=== PATIENT | male | born 1955 | race Caucasian/White ===

== ENCOUNTER 2024-06-28 12:03 | Observation (INO) | payer MEDICARE ==
[~2024-06-28] VITALS: Ht 170.2 cm; Wt 80.4 kg
[2024-06-28] VITALS (13 sets, daily range): BP systolic 110–143; BP diastolic 67–82
--- NOTE | 2024-06-28 12:09 | NUR ---
PATIENT TO ER ROOM 14 WITH STEADY GAIT.
--- NOTE | 2024-06-28 12:11 | NUR ---
PATIENT TO ROOM 14
[2024-06-28] MEDS ORDERED: ASPIRIN 81 MG/TAB PO ONE (12:15)
[2024-06-28 12:45] LABS: BASO% 0.5 % (0-3); EOS% 1.9 % (0-8); HEMATOCRIT 48.8 % (39.0-50.0); HEMOGLOBIN 16.7 g/dl (14.0-18.0); IMMATURE GRANULOCYTES 0.2 % (0.0-5.0); LYMPH% 30.1 % (15-41); MEAN CELL VOLUME 92.6 fL CALC (80.0-100.0); MEAN CORPUSCULAR HGB 31.7 pG CALC (26.0-32.0); MEAN CORPUSCULAR HGB CONC 34.2 g/dL CAL (32.0-36.0); MONO% 6.6 % (2-13); NEUT# 6.2 thou/uL (1.82-7.42); NEUT% 60.7 % (42-76); RED BLOOD COUNT 5.27 mill/uL (4.70-6.10); RED CELL DISTRI WIDTH 12.6 % (11.5-15.5)
[2024-06-28 12:51] LABS: ALBUMIN 4.6 g/dL (3.2-5.0); ALKALINE PHOSPHATASE 91 u/l (38-126); ANION GAP 15 (6-22 (CALC)); BILIRUBIN, TOTAL 0.9 mg/dL (0.2-1.3); BUN 20 mg/dL (8-23); BUN/CREATININE RATIO 22 (12-20 (CALC)); CARBON DIOXIDE 21 mmol/l (22-30); CHLORIDE 106 mmol/l (95-108); CREATININE 0.9 mg/dL (0.7-1.3); ESTIMATED GFR 91 ML/MIN (>=90 (CALC)); SGOT/AST 33 u/l (19-48); SODIUM 139 mmol/l (137-146); TOTAL PROTEIN 7.9 g/dL (6.3-8.2)
[2024-06-28] MEDS ORDERED: ACETAMINOPHEN 325 MG/TAB PO PRN (14:25)
[2024-06-28] MEDS ORDERED: MAGNESIUM HYDROXIDE 30 ML UDC PO PRN (14:25)
--- NOTE | 2024-06-28 14:37 | NUR ---
NURSE TO NURSE REPORT COMPLETED WITH BORIS MARTINEZ
--- NOTE | 2024-06-28 14:55 | NUR ---
REPORT RECEIVED FROM CHARLES IN ED, PT ARRIVED ON UNIT @ 1446 TRANSPORTED VIA W/C BY ED STAFF. ALERT AND ORIENTED X 4, DENIES PAIN AT THIS TIME, TELE MONITOR IN PLACE. ORIENTED TO ROOM AND CALL MICHEL, SPOUSE JUST ARRIVED IN ROOM AT THIS TIME.
--- NOTE | 2024-06-28 19:39 | NUR ---
PATIENT AWAKE ALERT AND ORIENTED X3. SITTING UP IN BED WATCHING TV. ASSESSMENT COMPLETE. DENIES PAIN AT THIS TIME. NO DISTRESS NOTED. CALL LIGHT WITHIN REACH..
[2024-06-28] MEDS ORDERED: ENOXAPARIN SODIUM 40 MG/0.4 ML SYR SC SCH (21:00)
[2024-06-29] VITALS (8 sets, daily range): BP systolic 121–125; BP diastolic 67–68
[2024-06-29 02:10] LABS: BASO% 0.5 % (0-3); EOS% 5.1 % (0-8); HEMATOCRIT 46.4 % (39.0-50.0); HEMOGLOBIN 15.7 g/dl (14.0-18.0); IMMATURE GRANULOCYTES 0.7 % (0.0-5.0); LYMPH% 35.2 % (15-41); MEAN CELL VOLUME 93.9 fL CALC (80.0-100.0); MEAN CORPUSCULAR HGB 31.8 pG CALC (26.0-32.0); MEAN CORPUSCULAR HGB CONC 33.8 g/dL CAL (32.0-36.0); MONO% 8.2 % (2-13); NEUT# 5.23 thou/uL (1.82-7.42); NEUT% 50.3 % (42-76); RED BLOOD COUNT 4.94 mill/uL (4.70-6.10); RED CELL DISTRI WIDTH 12.9 % (11.5-15.5)
[2024-06-29 02:15] LABS: CHOLESTEROL HDL RATIO 3.8 (<4.4 (CALC)); MAGNESIUM 2.2 mg/dL (1.6-2.3); TOTAL PROTEIN 6.8 g/dL (6.3-8.2)
[2024-06-29 02:16] LABS: BILIRUBIN, TOTAL 0.4 mg/dL (0.2-1.3)
--- NOTE | 2024-06-29 07:03 | NUR ---
BOOKED A CARDIOLOGY CONSULT WITH DR POPE VIA [facility] AT 0703 HRS.
--- NOTE | 2024-06-29 07:10 | NUR ---
PT SEEN BY CARDIOLOGY
--- NOTE | 2024-06-29 07:15 | NUR ---
PT SITTING ON THE SIDE OF THE BED WATCHING TV, PT DENIES ANY PAIN AT THIS TIME, PT IS A&O X3, PUPILS PERRL, NORMAL S1 S2 HEART SOUNDS, TELE MONITOR IN PLACE, ABD DISTENDED AND SOFT WITH ACTIVE BOWEL SOUNDS, STRONG RADIAL AND PEDAL PULSES, BLE JEFF HOSE ON, 20G RAC IV SL, SAFETY MEASURES REINFORCED, CALL MICHEL WITHIN REACH
[2024-06-29] MEDS ORDERED: ASPIRIN EC 81 MG/TAB PO SCH (09:00)
[2024-06-29] MEDS ORDERED: NITROGLYCERIN0.4 MG PO (09:53)
--- NOTE | 2024-06-29 11:05 | NUR ---
Discharge instructions given. Patient verbalizes understanding of same. Discharged in stable condition via Ambulatory to Home with spouse. All belongings sent with pt.
--- NOTE | 2024-06-30 12:14 | NUR ---
Discharge follow up call completed 06/30/24. Patient states he is doing well. Patient has prescribed medication available if needed. He has not made a follow up appointment yet, but will do so soon. Patient asked about taking aspirin but states he was not instructed to do so by doctor. Encouraged patient to speak to PCP before taking any medication other than what was prescribed. No needs or concerns vrbalized at this time.
== END 2024-06-29 11:07 | disposition home or self-care (01) ==
LOC: ED 12:03 → ED-I 13:30 → ED 13:47 → MS2 13:48
PROVIDERS: Family Medicine; Nurse Practitioner Family; ADMIT Internal Medicine; ATTEND Internal Medicine
DX: R07.89 Other chest pain (principal); M81.0 Age-related osteoporosis without current pathological fracture; I25.10 Atherosclerotic heart disease of native coronary artery without angina pectoris; I45.10 Unspecified right bundle-branch block; F17.210 Nicotine dependence, cigarettes, uncomplicated; Z82.49 Family history of ischemic heart disease and other diseases of the circulatory system
CPT/HCPCS: J1650